=== PATIENT | female | born 2000 | race Caucasian/White ===

== ENCOUNTER 2020-07-16 13:32 | Emergency (ER) | payer MEDICAID ==
[~2020-07-16] VITALS: Ht 165.1 cm; Wt 69.9 kg
[2020-07-16 13:40] VITALS: Ht 165.1 cm; Wt 69.9 kg
[2020-07-16] MEDS ORDERED: [UNRECOGNIZED DRUG - OTHER] OU ×2 (14:04→14:10)
[2020-07-16 14:54] VITALS: BP 102/70
== END 2020-07-16 14:54 | disposition home or self-care (01) ==
LOC: ED 13:32
DX: H00.015 Hordeolum externum left lower eyelid (principal)